=== PATIENT | female | born 1990 | race Caucasian/White ===

== ENCOUNTER 2017-01-15 06:38 | Inpatient (IN) | payer MEDICAID ==
[~2017-01-15] VITALS: Ht 149.9 cm; Wt 59.9 kg
--- NOTE | ~2017-01-15 | FD ---
ADMIT: 01/15/2017 RM/LOC: 228 [facility] MR#: [id number] [facility] [address] [place] [id number] JACLYN JIMENEZ P [address] [place] [address] Final Diagnosis SEX: F AGE: 26 : 1990 ADMISSION DATE: 01/15/2017 DISCHARGE DATE: 01/16/2017 FINAL DIAGNOSIS: , term . PROCEDURE: Vaginal delivery. Seth Woo MD/ corey JOB #: [id number] CC: Seth Woo MD, Attending Physician Seth Woo MD, Family Physician
--- NOTE | 2017-01-20 09:03 | HP ---
ADMIT: 01/15/2017 RM/LOC: 228 [facility] MR#: [id number] 2620 [facility] [address] [place] [id number] JACLYN JIMENEZ [address] [address] History and Physical SEX: F AGE: 26 : 1990 DATE OF SERVICE: CHIEF COMPLAINT: Induction of labor for post dates. HISTORY OF PRESENT ILLNESS: The patient is a at 41 weeks and 0 days today. Past medical history is significant for late care, establishing care with Dr. Woo at 28 weeks. The patient also had chlamydial infection at that time and was treated. No other past medical history. PAST SURGICAL HISTORY: No surgical history. ALLERGIES: NONE. MEDICATIONS: Include vitamins. SOCIAL HISTORY: She is . No alcohol use. No drug use. She is a nonsmoker. She does speak Peruvian. She is from [facility] originally. REVIEW OF SYSTEMS: Negative. The patient reported good movement. No vaginal bleeding. No loss of fluid. Occasional uterine contractions but nothing regular. The patient was admitted for induction of labor for post dates. PHYSICAL EXAMINATION: VITAL SIGNS: Within normal limits. GENERAL: No acute distress. Alert and oriented x3. HEAD, EARS, NOSE, AND THROAT: Normocephalic, atraumatic. Moist mucous membranes. Extraocular muscles are intact. Nonpalpable thyroid. HEART: Regular rate and rhythm. LUNGS: Clear to auscultation bilaterally. ABDOMEN: Soft, nontender, and gravid. EXTREMITIES: No signs of edema. GENITOURINARY: The patient was checked by Nursing when she arrived and found to be 4 cm dilated, 90% effaced, 2 station. heart tracings have been reassuring. Heart tones when she first arrived here was 125 beats per minute, moderate variability. Positive accelerations, no decelerations. Contractions every 3-5 minutes at that time. ADMIT: 01/15/2017 RM/LOC: 228 [facility] MR#: [id number] [address] [id number] SHAHANA JIMENEZRED P [address] [place], [place] [address] History and Physical SEX: F AGE: 26 : 1990 OBSTETRICAL LABORATORY DATA: Again positive for chlamydia but treated. Negative GBS. Diabetic screen was within normal limits. Rubella immune. RPR nonreactive. Hepatitis B surface antigen negative. Gonorrhea was negative. HIV negative. ASSESSMENT AND PLAN: This is a 26-year-old, G4 P 3-0-0-3 at 41 weeks 0 days today who comes to Labor and Delivery for induction of labor. 1. We will admit to Labor and Delivery, augment labor with artificial rupture of membranes as well as Pitocin. 2. She is group B Strep negative. No antibiotics are needed prophylactically. 3. Fetus is vertex and overall reassuring. Jenn Osborne MD Resident / Seth Woo MD / dima JOB #: [id number] CC: Seth Woo, Attending Physician Seth Woo, Family Physician
--- NOTE | 2017-01-20 09:03 | OR ---
ADMIT: 01/15/2017 RM/LOC: 228 [facility] MR#: [id number] [address] [facility] [address] [place] [id number] JACLYN JIMENEZ [address] [address] Operative/Delivery Room Report SEX: F AGE: 26 : 1990 SURGERY DATE: 01/15/2017 SURGEON: Seth Woo MD PRINCIPAL DIAGNOSES: 1. Term intrauterine . 2. bradycardia. POSTOPERATIVE DIAGNOSES: 1. Term intrauterine . 2. bradycardia. PROCEDURE: Vacuum-assisted vaginal delivery. INDICATION: The patient is a 26-year-old female, 4, para 3-0- 0-3, who presented at 41 weeks' estimated gestational age in active labor, progressed through labor in a satisfactory fashion to complete. Began pushing, and with pushing began having decelerations into the 70s and 80s. We reviewed management options including options of assisted vaginal delivery versus a section and she opted for assisted vaginal delivery. ANESTHESIA: None. ESTIMATED BLOOD LOSS: 300 mL. COMPLICATIONS: None. FINDINGS: Viable male infant, 8 pounds 14 ounces, with scores of 8 at 1 and 9 at 5 minutes. PROCEDURE IN DETAIL: When the patient was noted to be complete and pushing, she was prepped and draped in the usual fashion in dorsal lithotomy position. The position of the vertex was checked and noted to be right occiput anterior Sammy-Ronaldo forceps were attempted to be placed. The posterior forceps blade slid on without difficulty. Secondary to the patient's borderline platypelloid pelvis, we were unable to place the anterior forceps blade. The posterior forceps blades were then removed and a vacuum was then applied to the vertex. With the next push, the vertex was brought to . The vacuum was removed and the head was allowed to deliver ADMIT: 01/15/2017 RM/LOC: 228 [facility] MR#: [id number] [address] [address] JACLYN JIMENEZ [address] [address] Operative/Delivery Room Report SEX: F AGE: 26 : 1990 over an intact perineum. After restitution of the head, the mouth and nose were clear. The neck was examined for nuchal cord and none was noted. The anterior followed by the posterior shoulders were delivered followed by expulsion of the remainder of the infant. Mouth and nose were again cleared. Cord was clamped x2, cut, and the was handed off to the waiting NICU staff. Placenta was then delivered intact with normal appearance. The uterine cervix was visualized and noted to be without lacerations or tears. The vaginal wall was noted to be intact with no lacerations or tears. Attention was then turned to the perineum, where she was noted to have some small first degree abrasions around the introitus, but nothing that required any sutures. The patient tolerated the procedure well and was taken to the recovery room in stable condition. All sponge, instrument, and needle counts were correct. Seth Woo MD/ dima JOB #: [id number] CC: Seth Woo, Attending Physician Seth Woo, Family Physician
== END 2017-01-16 14:52 | disposition home or self-care (01) | DRG 775 ==
LOC: BC 06:38 → 2LDRP 06:38
PROVIDERS: ADMIT Obstetrics & Gynecology
PROC: 3E033VJ Introduction of Other Hormone into Peripheral Vein, Percutaneous Approach (ICD-10-PCS; principal; 2017-01-15)
PROC: 10907ZC Drainage of Amniotic Fluid, Therapeutic from Products of Conception, Via Natural or Artificial Opening (ICD-10-PCS; principal; 2017-01-15)
PROC: 10D07Z6 Extraction of Products of Conception, Vacuum, Via Natural or Artificial Opening (ICD-10-PCS; principal; 2017-01-15)
DX: O48.0 Post-term pregnancy (principal); O33.0 Maternal care for disproportion due to deformity of maternal pelvic bones; O76 Abnormality in fetal heart rate and rhythm complicating labor and delivery; Z3A.41 41 weeks gestation of pregnancy; Z37.0 Single live birth